=== PATIENT | female | born 1975 | race Caucasian/White ===

== ENCOUNTER 2019-01-10 13:28 | Emergency (ER) | payer BC ==
[2019-01-10 13:42] VITALS: BP 138/85; PULSE 85; TEMP 97.4; BMI 26.6
--- NOTE | 2019-01-10 14:27 | PDOC ---
History of Present Illness - General Chief Complaint: RX Refill Stated Complaint: NOT SLEEPING History Source: Patient Exam Limitations: Language Barrier - History of Present Illness Initial Comments: 01/10/19 14:21 Using analyst telephone patient here requesting assistance finding of private physician for thorough physical and assistance in her insomnia. Has taken melatonin with minimal resolved. States has not had a physical for many years and feels that she has been mildly rundown. No fevers, no URI symptoms, no weight loss, and denies significant stress. Timing/Duration: unsure, intermittent Severity: mild, moderate Associated Symptoms: denies: fever/chills, malaise, nausea/vomiting Past History - Travel Traveled outside of the country in the last 30 days: No Close contact w/someone who was outside of country & ill: No - Past Medical History Allergies/Adverse Reactions: Allergies Allergy/AdvReac Type Severity Reaction Status Date / Time No Known Allergies Allergy Verified 01/10/19 13:54 Home Medications: Ambulatory Orders Diphenhydramine HCl [Benadryl -] 25 mg PO Q8H PRN #30 capsule 01/10/19 Cancer: No Cardiac Disorders: No CVA: No COPD: No CHF: No DVT: No - Suicide/Smoking/Psychosocial Hx Smoking Status: No Smoking History: Never smoked Number of Cigarettes Smoked Daily: 0 Information on smoking cessation initiated: No Hx Alcohol Use: Yes ("a beer sometimes.") Drug/Substance Use Hx: No Substance Use Type: None Review of Systems - Review of Systems Able to Perform ROS?: Yes Is the patient limited Haitian proficient: Yes Constitutional: Yes: See HPI. No: Symptoms Reported, Chills, Fever, Malaise HEENTM: Yes: See HPI. No: Symptoms Reported, Nose Congestion, Throat Pain Respiratory: Yes: See HPI. No: Symptoms reported, Cough Musculoskeletal: Yes: Symptoms Reported, See HPI Integumentary: No: Symptoms Reported Neurological: Yes: See HPI. No: Symptoms reported, Headache Psychiatric: Yes: Sleep Pattern Change. No: Anxiety, Depression, Stressors All Other Systems: Reviewed and Negative *Physical Exam - Vital Signs Last Vital Signs Temp Pulse Resp BP Pulse Ox 97.4 F L 85 20 138/85 100 01/10/19 13:39 01/10/19 13:39 01/10/19 13:39 01/10/19 13:39 01/10/19 13:39 - Physical Exam General Appearance: Yes: Nourished, Appropriately Dressed HEENT: positive: ELIESER, Normal ENT Inspection, TMs Normal, Pharynx Normal Neck: positive: Supple. negative: Tender Respiratory/Chest: positive: Lungs Clear, Normal Breath Sounds. negative: Chest Tender Musculoskeletal: positive: Normal Inspection Extremity: positive: Normal Capillary Refill, Normal Inspection Integumentary: positive: Normal Color, Dry, Warm Neurologic: positive: physical science teacher II-XII NML intact, Fully Oriented, Alert, Normal Mood/ Affect, Normal Response, Motor Strength 02/16 Medical Decision Making - Medical Decision Making 01/10/19 14:51 Will recommend patient to continue diphenhydramine for mild hypnotic. Him and phone number for [facility] for follow-up evaluation and thorough physical. *DC/Admit/Observation/Transfer Diagnosis at time of Disposition: Insomnia Qualifiers: Insomnia type: unspecified Qualified Code(s): G47.00 - Insomnia, unspecified - Discharge Dispostion Disposition: HOME Condition at time of disposition: Stable Decision to Admit order: No - Prescriptions Prescriptions: Diphenhydramine HCl [Benadryl -] 25 mg PO Q8H PRN #30 capsule PRN Reason: sneezing/cough - Referrals Referrals: [facility] [Provider Group] - Patient Instructions Printed Discharge Instructions: DI for Insomnia Additional Instructions: Rest, drink lots of fluids: Teas, water, soups, Pedialyte May use Benadryl (diphenhydramine ) one 25 mg tablet Continue [id number] medications for symptomatic relief Tylenol or Motrin for fever and pain Followup with private physician in one to 2 days as needed Return to emergency department for worsened symptoms, fevers, dehydration Print Language: MONGOLIAN - Post Discharge Activity Forms/Work/School Notes: Back to Work
== END 2019-01-10 14:40 | disposition home or self-care (01) ==
LOC: JERFT 13:28
DX: G47.00 Insomnia, unspecified (principal)
CPT/HCPCS: 99281-25

== ENCOUNTER 2019-04-08 10:50 | Emergency (ER) | payer BC | END 2019-04-08 11:59 | disposition home or self-care (01) | LOC: JERFT 10:50 ==

== ENCOUNTER 2021-11-05 14:25 | Emergency (ER) | payer BC ==
[2021-11-05 14:58] VITALS: BP 141/86; PULSE 100; TEMP 98.3; BMI 25.7
[2021-11-05] MEDS ORDERED: DEXAMETHASONE 4 MG TABLET (FP) PO ONE (15:16)
[2021-11-05] MEDS ORDERED: FAMOTIDINE 20 MG TABLET PO ONE (15:16)
[2021-11-05] MEDS ORDERED: FAMOTIDINE 20 MG TABLET ONE (15:31)
[2021-11-05] MEDS ORDERED: DEXAMETHASONE 4 MG TABLET (FP) ONE (15:31)
[2021-11-06] MEDS ORDERED: DEXAMETHASONE 4 MG TABLET (FP) PO ONE (15:16)
== END 2021-11-05 15:50 | disposition home or self-care (01) ==
LOC: JERFT 14:25 → JER 14:25 → JERFT 15:50
DX: R21 Rash and other nonspecific skin eruption (principal)
CPT/HCPCS: 99283-25

== ENCOUNTER 2023-06-03 13:39 | Emergency (ER) | payer BC ==
[2023-06-03 13:45] VITALS: BP 155/89; PULSE 92; RESP 18; TEMP 98.4; BMI 24.9
[2023-06-03] MEDS ORDERED: DEXAMETHASONE LIQUID 0.5 MG/5 ML PO ONE (14:49)
[2023-06-03] MEDS ORDERED: DEXAMETHASONE SOD PHOSPHATE 10 MG/1 ML VIAL ONE (14:58)
== END 2023-06-03 15:55 | disposition home or self-care (01) ==
LOC: JERFT 13:39 → JER 13:39 → JERFT 15:55
PROC: 3E033NZ Introduction of Analgesics, Hypnotics, Sedatives into Peripheral Vein, Percutaneous Approach (ICD-10-PCS; principal; 2023-06-03)
DX: R21 Rash and other nonspecific skin eruption (principal); T78.40XA Allergy, unspecified, initial encounter
CPT/HCPCS: 99284-25